=== PATIENT | female | born 1960 | race Caucasian/White ===

== ENCOUNTER 2019-01-06 11:44 | Emergency (ER) | payer OTHER ==
[~2019-01-06] VITALS: Ht 165.1 cm; Wt 64.4 kg
[~2019-01-06 11:44] MED LIST: ALBU90I INH; ALBU90OI INH; AMOCLA875 PO; AZEL137S NS; AZIT250 PO; CIPR500 PO; CODGUAEL PO; CONEST1.25 PO; CYCL10 PO; DOXY100 PO; HYDACE10B PO; HYDACE5 PO; IBUP800 PO; LORA10ER PO; METO10 PO; METR500 PO; NAPR500 PO; OXYACE5T PO; PRED20 PO; RXOXYACE PO; SIMV5 PO; VITS; ZOLP10 PO; ZOLP5 PO
[2019-01-06 12:26] LABS: BASOPHILS ABSOLUTE AUTO 0.06 K/mm3 (0.00-0.23); BASOPHILS PERCENT AUTO 1 % (0-2); EOSINOPHILS ABSOLUTE AUTO 0.07 K/mm3 (0.00-0.68); EOSINOPHILS PERCENT AUTO 1 % (0-6); Hematocrit 46.5 % (33.0-51.0); IMMATURE GRAN ABSOLUTE AUTO 0.04 K/mm3 (0.00-0.10); IMMATURE GRAN PERCENT AUTO 0 % (0-1); LYMPHOCYTES ABSOLUTE AUTO 3.96 K/mm3 (0.84-5.20); LYMPHOCYTES PERCENT AUTO 38 % (21-46); MONOCYTES ABSOLUTE AUTO 0.57 K/mm3 (0.16-1.47); MONOCYTES PERCENT AUTO 5 % (4-13); Mean Corpuscular HGB Conc 32.3 g/dL (31.5-36.5); Mean Corpuscular Volume 96 fL (80-100); Mean Platelet Volume 10.1 fL (9.1-12.4); NEUTROPHILS PERCENT AUTO 55 % (41-73); Platelet Count 280 K/mm3 (150-400); RDW Coefficient Variation 13.8 % (11.7-14.2); RDW Standard Deviation 49.1 fL (35.1-46.3); Red Blood Cell Count 4.84 M/mm3 (3.80-5.20)
[2019-01-06 12:48] LABS: Alanine Aminotransfer (ALT/SGP 21 U/L (12-78); Albumin, Blood 3.9 g/dL (3.4-5.0); Albumin/Globulin Ratio 1.1 (0.8-1.8); Alk Phos 77 U/L (50-136); Anion Gap 5 mmol/L (6-16); Aspartate Aminotrans (AST/SGOT 7 U/L (12-37); Bilirubin, Total 0.3 mg/dL (0.1-1.0); Blood Urea Nitrogen 12 mg/dL (8-24); Bun/Creatinine Ratio 16.1 (12.0-20.0); CO2, Blood 26 mmol/L (21-32); Calcium, Blood 9.5 mg/dL (8.5-10.1); Chloride, Blood 110 mmol/L (98-108); Creatinine, Blood 0.75 mg/dL (0.40-1.00); Globulin, Blood 3.4 g/dL (2.2-4.0); Glomerular Filtration Rate >60 (60-); Glucose, Blood 99 mg/dL (70-99); Potassium, Blood 3.5 mmol/L (3.5-5.5); Sodium, Blood 141 mmol/L (136-145); Total Protein, Blood 7.3 g/dL (6.4-8.2)
== END 2019-01-06 14:54 | disposition home or self-care (01) ==
LOC: ER 11:44
PROVIDERS: Physician Assistant
DX: K21.9 Gastro-esophageal reflux disease without esophagitis (principal); F17.210 Nicotine dependence, cigarettes, uncomplicated; Z88.2 Allergy status to sulfonamides; Z91.018 Allergy to other foods; Z79.899 Other long term (current) drug therapy
CPT/HCPCS: 36415; 76705; 80053; 83690; 84484; 85025; 93005; 93010; 96374; 99284-25; J2405

== ENCOUNTER 2021-08-13 14:20 | Inpatient (IN) | payer OTHER ==
[~2021-08-13] VITALS: Ht 165.1 cm; Wt 65.3 kg
[2021-08-13 14:54] LABS: BASOPHILS ABSOLUTE AUTO 0.05 K/mm3 (0.00-0.23); BASOPHILS PERCENT AUTO 1 % (0-2); EOSINOPHILS ABSOLUTE AUTO 0.05 K/mm3 (0.00-0.68); EOSINOPHILS PERCENT AUTO 1 % (0-6); Hematocrit 48.3 % (33.0-51.0); Hemoglobin 15.7 g/dL (11.5-16.0); IMMATURE GRAN ABSOLUTE AUTO 0.05 K/mm3 (0.00-0.10); IMMATURE GRAN PERCENT AUTO 1 % (0-1); LYMPHOCYTES ABSOLUTE AUTO 2.81 K/mm3 (0.84-5.20); LYMPHOCYTES PERCENT AUTO 26 % (21-46); MONOCYTES ABSOLUTE AUTO 0.69 K/mm3 (0.16-1.47); MONOCYTES PERCENT AUTO 6 % (4-13); Mean Corpuscular HGB 30.7 pg (26.0-34.0); Mean Corpuscular HGB Conc 32.5 g/dL (31.5-36.5); Mean Corpuscular Volume 94 fL (80-100); Mean Platelet Volume 9.9 fL (9.1-12.4); NEUTROPHILS ABSOLUTE AUTO 7.23 K/mm3 (1.96-9.15); NEUTROPHILS PERCENT AUTO 66 % (41-73); Platelet Count 344 K/mm3 (150-400); RDW Standard Deviation 49.1 fL (35.1-46.3); Red Blood Cell Count 5.12 M/mm3 (3.80-5.20); White Blood Cell Count 10.88 K/mm3 (4.00-11.30)
[2021-08-13 15:10] LABS: Alanine Aminotransfer (ALT/SGP 21 U/L (12-78); Albumin, Blood 3.7 g/dL (3.4-5.0); Alk Phos 80 U/L (50-136); Anion Gap 8 mmol/L (6-16); Aspartate Aminotrans (AST/SGOT 8 U/L (12-37); Bilirubin, Total 0.4 mg/dL (0.1-1.0); Blood Urea Nitrogen 13 mg/dL (8-24); Bun/Creatinine Ratio 17.7 (12.0-20.0); CO2, Blood 27 mmol/L (21-32); Calcium, Blood 9.8 mg/dL (8.5-10.1); Chloride, Blood 106 mmol/L (98-108); Creatinine, Blood 0.74 mg/dL (0.40-1.00); Globulin, Blood 3.7 g/dL (2.2-4.0); Glomerular Filtration Rate >60 (60-); Glucose, Blood 110 mg/dL (70-99); Sodium, Blood 141 mmol/L (136-145); Total Protein, Blood 7.4 g/dL (6.4-8.2)
[2021-08-13 15:42] LABS: Source, Urine Clean Catch
[2021-08-13 15:50] LABS: Appearance, Urine Cloudy (Clear); Bilirubin, Urine Neg (Neg); Blood, Urine 2+ (Neg); Color, Urine Yellow (P-Yellow); Glucose Qualitative, Urine Neg (Neg); Ketones, Urine 1+ (Neg); Leukocyte Esterase, Urine 1+ (Neg); Nitrite, Urine Pos (Neg); Protein, Urine 1+ (Neg); Urobilinogen, Urine 1+ (Normal)
[2021-08-13 16:34] LABS: Red Blood Cells, Urine 0-2 /hpf (0-2)
[2021-08-13 16:35] LABS: Bacteria Many /hpf; Squamous Epithelial Cells Few /hpf (Few)
[2021-08-13 20:50] LABS: Influenza A, PCR NEGATIVE (NEGATIVE); Influenza B, PCR NEGATIVE (NEGATIVE); Resp Syncytial Virus, PCR NEGATIVE (NEGATIVE); SARS-Cov-2 (COVID-19) PCR, MMC NEGATIVE (NEGATIVE)
--- NOTE | 2021-08-13 20:53 | NUR ---
ADMIT NOTE 61 YR OLD FEMALE ADMITTED TO FLOOR FROM THE ED WITH DX SBO, CONFIRMED PER CT. ORIENTED TO CALL LIGHT. UP AD ELLY.
--- NOTE | 2021-08-14 03:55 | NUR ---
SHIFT SUMMARY PT ADMITTED FROM ER FOR SBO. NPO. INDEPENDENT IN ROOM. A&O X 4. MEDICATED PER EMAR FOR BACK AND ABD PAIN. NO ACUTE CHANGES SINCE ADMIT. CALL LIGHT WITHIN REACH. WILL CONTINUE TO MONITOR.
[2021-08-14 05:24] LABS: BASOPHILS ABSOLUTE AUTO 0.05 K/mm3 (0.00-0.23); BASOPHILS PERCENT AUTO 1 % (0-2); EOSINOPHILS ABSOLUTE AUTO 0.13 K/mm3 (0.00-0.68); EOSINOPHILS PERCENT AUTO 2 % (0-6); Hematocrit 38.3 % (33.0-51.0); Hemoglobin 12.5 g/dL (11.5-16.0); IMMATURE GRAN ABSOLUTE AUTO 0.03 K/mm3 (0.00-0.10); IMMATURE GRAN PERCENT AUTO 0 % (0-1); LYMPHOCYTES ABSOLUTE AUTO 3.07 K/mm3 (0.84-5.20); LYMPHOCYTES PERCENT AUTO 35 % (21-46); MONOCYTES ABSOLUTE AUTO 0.57 K/mm3 (0.16-1.47); MONOCYTES PERCENT AUTO 7 % (4-13); Mean Corpuscular HGB 30.9 pg (26.0-34.0); Mean Corpuscular HGB Conc 32.6 g/dL (31.5-36.5); Mean Corpuscular Volume 95 fL (80-100); NEUTROPHILS ABSOLUTE AUTO 4.91 K/mm3 (1.96-9.15); NEUTROPHILS PERCENT AUTO 56 % (41-73); Platelet Count 264 K/mm3 (150-400); RDW Standard Deviation 49.1 fL (35.1-46.3); Red Blood Cell Count 4.05 M/mm3 (3.80-5.20); White Blood Cell Count 8.76 K/mm3 (4.00-11.30)
--- NOTE | 2021-08-14 05:49 | NUR ---
VOICED HAD PASSED SOME GAS. CALL LIGHT IN REACH
[2021-08-14 06:09] LABS: Alanine Aminotransfer (ALT/SGP 13 U/L (12-78); Albumin, Blood 2.6 g/dL (3.4-5.0); Albumin/Globulin Ratio 1.1 (0.8-1.8); Alk Phos 56 U/L (50-136); Anion Gap 5 mmol/L (6-16); Aspartate Aminotrans (AST/SGOT 8 U/L (12-37); Bilirubin, Total 0.4 mg/dL (0.1-1.0); Blood Urea Nitrogen 13 mg/dL (8-24); Bun/Creatinine Ratio 19.3 (12.0-20.0); CO2, Blood 26 mmol/L (21-32); Calcium, Blood 8.3 mg/dL (8.5-10.1); Chloride, Blood 112 mmol/L (98-108); Creatinine, Blood 0.67 mg/dL (0.40-1.00); Globulin, Blood 2.3 g/dL (2.2-4.0); Glomerular Filtration Rate >60 (60-); Glucose, Blood 94 mg/dL (70-99); Potassium, Blood 4.2 mmol/L (3.5-5.5); Sodium, Blood 143 mmol/L (136-145)
[2021-08-14 06:21] LABS: Total Protein, Blood 4.9 g/dL (6.4-8.2)
--- NOTE | 2021-08-14 12:47 | NUR ---
PER PATIENT OK TO UPDATE SISTER,KATIE @ [phone]. SISTER UPDATED. ANSWER ALL QUESTIONS
--- NOTE | 2021-08-14 13:27 | NUR ---
ALERT. ORIENTED. AMBULATING IN HALLWAY MULTIPLE TIMES. PASSING GAS. WCTM
--- NOTE | 2021-08-14 18:39 | NUR ---
MEDICATED X 2 FOR ABD PAIN WITH GOOD RESULTS. KPAD GIVEN. AMBULATORY AROUND 5 TIMES IN HALLWAY AND STILL PASSING GAS. NO B.M. YET. WCTM
--- NOTE | 2021-08-15 04:18 | NUR ---
SHIFT SUMMARY PT WITH NO ACUTE CHANGES. STILL NO BM, BUT PASSING GAS. PT STILL HAVING SOME PAIN IN ABD AND BACK. MEDICATED PER EMAR. NS RUNNING AT 125/HR. A&O X 4. WENT FOR A WALK AROUND THE HALLS EARLIER IN THE EVENING. PT RESTING IN BED WITH CALL LIGHT WITHIN REACH. WILL CONTINUE TO MONITOR.
[2021-08-15 05:55] LABS: Alanine Aminotransfer (ALT/SGP 18 U/L (12-78); Albumin, Blood 2.6 g/dL (3.4-5.0); Albumin/Globulin Ratio 1.1 (0.8-1.8); Alk Phos 55 U/L (50-136); Anion Gap 7 mmol/L (6-16); Aspartate Aminotrans (AST/SGOT 12 U/L (12-37); Bilirubin, Total 0.3 mg/dL (0.1-1.0); Blood Urea Nitrogen 10 mg/dL (8-24); Bun/Creatinine Ratio 18.4 (12.0-20.0); CO2, Blood 22 mmol/L (21-32); Calcium, Blood 8.3 mg/dL (8.5-10.1); Chloride, Blood 113 mmol/L (98-108); Creatinine, Blood 0.54 mg/dL (0.40-1.00); Globulin, Blood 2.3 g/dL (2.2-4.0); Glomerular Filtration Rate >60 (60-); Glucose, Blood 81 mg/dL (70-99); Potassium, Blood 4.1 mmol/L (3.5-5.5); Sodium, Blood 142 mmol/L (136-145); Total Protein, Blood 4.9 g/dL (6.4-8.2)
[2021-08-15] MEDS ORDERED: DOCU100 PO (17:42)
[2021-08-15] MEDS ORDERED: CEFU500T30 PO (17:42)
[2021-08-15] MEDS ORDERED: MIRALAX17 GM PO (17:42)
--- NOTE | 2021-08-15 17:58 | NUR ---
DISSCHARGE NOTE- PT HAS HAD MULTIPLE BMS IN THE LAST TWO HOURS. SPOKE WITH DR GUERRA THE PT WOULD LIKE TO KNOW IF SHE CAN GO HOME. RECIEVED ORDER FOR DISCHARGE. PT WAS GIVEN BOTH WRITTEN AND VERBAL DISHARGE INFORMATION AND ACKNOWLEDGED UNDERSTANDING OF THEM. IV DC'D PRIOR TO DISCHARGE. PT GOT HERSELF DRESSED INDEPENDENTLY AND WAS ESCORTED OUT TO THE PARKING LOT WHERE SHE PARKED HER CAR WWHEN SHE CAME TO THE HOSPITAL. PT WILL DRIVE HERSELF HOME. NO NARCOTICS GIVEN. PT AWAKE ALERT AND ORIENTED AT THE TIME OF DISCHARGE AND STATED HER BACK NO LONGER HURTS AT ALL.
== END 2021-08-15 18:03 | disposition home or self-care (01) | DRG 389 ==
LOC: ER 14:20 → MEDS 14:21
PROVIDERS: Emergency Medicine; Internal Medicine; ADMIT Internal Medicine
DX: K56.609 Unspecified intestinal obstruction, unspecified as to partial versus complete obstruction (principal); N39.0 Urinary tract infection, site not specified; Z20.822 Contact with and (suspected) exposure to COVID-19; E86.0 Dehydration; B96.20 Unspecified Escherichia coli [E. coli] as the cause of diseases classified elsewhere; F17.210 Nicotine dependence, cigarettes, uncomplicated; K90.0 Celiac disease; Z88.2 Allergy status to sulfonamides; Z79.899 Other long term (current) drug therapy; Z79.1 Long term (current) use of non-steroidal anti-inflammatories (NSAID); Z90.710 Acquired absence of both cervix and uterus
CPT/HCPCS: 0241U; 36415; 74177; 80053; 81001; 83690; 85025; 87077; 87086; 87186; 96365; 96372; 96375; 96376; 99285-25; A9270; G0378; J0696; J1170; J1650; J1885; J2405; J3010; J7030; Q9967

== ENCOUNTER → 2022-05-30 | Outpatient (CLI) | payer OTHER ==
[~2022-05-30] MED LIST changes: +CEFU500T30 PO; +DOCU100 PO; +MIRALAX17 GM PO
== END | disposition home or self-care (01) ==
LOC: LAB SHORT 15:04 → LAB 15:04
DX: N39.0 Urinary tract infection, site not specified (principal)
CPT/HCPCS: 87077; 87086; 87186

== ENCOUNTER 2025-04-15 14:24 | Emergency (ER) | payer BC ==
[~2025-04-15] VITALS: Ht 165.1 cm; Wt 78.9 kg
[2025-04-15 15:15] LABS: BASOPHILS ABSOLUTE AUTO 0.06 K/mm3 (0.00-0.23); BASOPHILS PERCENT AUTO 1 % (0-2); EOSINOPHILS ABSOLUTE AUTO 0.12 K/mm3 (0.00-0.68); EOSINOPHILS PERCENT AUTO 1 % (0-6); Hematocrit 44.2 % (33.0-51.0); Hemoglobin 14.6 g/dL (11.5-16.0); IMMATURE GRAN ABSOLUTE AUTO 0.05 K/mm3 (0.00-0.10); IMMATURE GRAN PERCENT AUTO 1 % (0-1); LYMPHOCYTES ABSOLUTE AUTO 4.08 K/mm3 (0.84-5.20); LYMPHOCYTES PERCENT AUTO 41 % (21-46); MONOCYTES ABSOLUTE AUTO 0.64 K/mm3 (0.16-1.47); MONOCYTES PERCENT AUTO 6 % (4-13); Mean Corpuscular HGB Conc 33.0 g/dL (31.5-36.5); Mean Corpuscular Volume 93 fL (80-100); NEUTROPHILS ABSOLUTE AUTO 5.00 K/mm3 (1.96-9.15); NEUTROPHILS PERCENT AUTO 50 % (41-73); NRBC ABSOLUTE 0.00 K/mm3 (0.00-0.02); NRBC Auto 0.0 /100 WBC (0.0-0.2); Platelet Count 312 K/mm3 (150-400); RDW Coefficient Variation 14.3 % (11.7-14.2); RDW Standard Deviation 49.2 fL (35.1-46.3)
[2025-04-15 15:37] LABS: CORONAVIRUS COVID-19 AG Negative (NEGATIVE)
[2025-04-15 15:51] LABS: Alanine Aminotransfer (ALT/SGP 22.0 U/L (12-78); Albumin, Blood 3.7 g/dL (3.4-5.0); Albumin/Globulin Ratio 1.1 (0.8-1.8); Anion Gap 9.0 mmol/L (3-11); Aspartate Aminotrans (AST/SGOT 11.0 U/L (12-37); Bilirubin, Total 0.2 mg/dL (0.1-1.0); Blood Urea Nitrogen 11.0 mg/dL (8-24); CO2, Blood 24.0 mmol/L (21-32); Calcium, Blood 9.2 mg/dL (8.5-10.1); Chloride, Blood 106.0 mmol/L (98-108); Creatinine, Blood 0.61 mg/dL (0.40-1.00); Globulin, Blood 3.5 g/dL (2.2-4.0); Glucose, Blood 104.0 mg/dL (70-99); Potassium, Blood 3.6 mmol/L (3.5-5.5); Sodium, Blood 135.0 mmol/L (136-145); Total Protein, Blood 7.2 g/dL (6.4-8.2)
[2025-04-15 18:08] VITALS: BP 156/66
== END 2025-04-15 19:37 | disposition home or self-care (01) ==
LOC: ER 14:24
PROVIDERS: Emergency Medicine
DX: B34.9 Viral infection, unspecified (principal); K90.0 Celiac disease; F17.210 Nicotine dependence, cigarettes, uncomplicated; Z88.2 Allergy status to sulfonamides; Z91.018 Allergy to other foods; Z79.899 Other long term (current) drug therapy
CPT/HCPCS: 71046; 80053; 84484; 85025; 87428-QW; 93005; 93010; 99284-25